=== PATIENT | male | born 1980 | race Caucasian/White ===

== ENCOUNTER 2018-11-26 12:59 | Emergency (ER) | payer SELFPAY ==
[2018-11-26 13:11] VITALS: BP 107/62; PULSE 88; TEMP 97.7; BMI 28.4
[2018-11-26] MEDS ORDERED: LIDOCAINE 1%/EPI 1:100000 (20 ML MULTI DOSE VIAL) IJ ONE (14:06)
[2018-11-26] MEDS ORDERED: LIDOCAINE 1%/EPI 1:100000 (20 ML MULTI DOSE VIAL) ONE (14:13)
--- NOTE | 2018-11-26 14:33 | PDOC ---
History of Present Illness - General Chief Complaint: Laceration Stated Complaint: RT LEG PAIN Time Seen by Provider: 11/26/18 14:01 - History of Present Illness Initial Comments: 11/26/18 14:28 37-year-old male without comorbidities presents for evaluation of the bleeding right lower extremity. He states he hit his head into a door jam while at work he presents for evaluation of uncontrolled bleeding. Past History - Past Medical History Allergies/Adverse Reactions: Allergies Allergy/AdvReac Type Severity Reaction Status Date / Time No Known Allergies Allergy Verified 11/26/18 13:11 COPD: No - Suicide/Smoking/Psychosocial Hx Smoking History: Never smoked Have you smoked in the past 12 months: No Information on smoking cessation initiated: No Hx Alcohol Use: Yes Drug/Substance Use Hx: No Review of Systems - Review of Systems Integumentary: Yes: See HPI *Physical Exam - Vital Signs Last Vital Signs Temp Pulse Resp BP Pulse Ox 97.7 F 88 18 107/62 100 11/26/18 13:06 11/26/18 13:06 11/26/18 13:06 11/26/18 13:06 11/26/18 13:06 - Physical Exam Comments: 11/26/18 14:29 Right lower extremity skin color and temperature are normal. There is a small approximately 1 mm puncture wound overlying of variceal on the anterior aspect of the right lower leg. Bleeding is controlled with direct pressure. Pressures removed bleeding continues. Bleeding is a steady stream with an arc about 3 inches above the skin. No gross sensorimotor deficits. Neurovascularly intact distal to the injury. ED Treatment Course - Medications Given in the ED: ED Medications Discontinued Medications Generic Name Dose Route Start Last Admin Trade Name Fermin PRN Reason Stop Dose Admin Lidocaine/Epinephrine 2 ml 11/26/18 14:06 11/26/18 14:23 Xylocaine 1%-Epi 1:100,000 IJ 11/26/18 14:07 2 ml ONCE ONE Administration Medical Decision Making - Medical Decision Making 11/26/18 14:31 Bleeding was controlled with 2 mL of lidocaine with epinephrine and Surgicel as well as direct pressure. A dry sterile dressing was placed. This was injected aseptically using Betadine to prep. *DC/Admit/Observation/Transfer Diagnosis at time of Disposition: Skin hemorrhage - Discharge Dispostion Disposition: HOME Condition at time of disposition: Improved Decision to Admit order: No - Referrals Referrals: Tolentino,Merlin N, MD [Staff Physician] - - Patient Instructions Additional Instructions: Return to the emergency room for worsening symptoms. Please keep that dressing on for the next 48 hours do not remove the dressing. Follow-up with general surgery in 1-2 days for further evaluation and treatment options. - Post Discharge Activity
== END 2018-11-26 14:37 | disposition home or self-care (01) ==
LOC: JERFT 12:59
PROC: 3E023BZ Introduction of Anesthetic Agent into Muscle, Percutaneous Approach (ICD-10-PCS; principal; 2018-11-26)
DX: S81.831A Puncture wound without foreign body, right lower leg, initial encounter (principal); W26.8XXA Contact with other sharp object(s), not elsewhere classified, initial encounter; Y93.89 Activity, other specified; Y92.89 Other specified places as the place of occurrence of the external cause; Y99.0 Civilian activity done for income or pay
CPT/HCPCS: 99281-25